=== PATIENT | female | born 1965 | race Caucasian/White ===

== ENCOUNTER → 2018-10-08 | Outpatient (CLI) | payer OTHER | LOC: CIMAGING 13:39 | PROVIDERS: ATTEND Family Medicine | DX: R07.81 Pleurodynia (principal); W19.XXXA Unspecified fall, initial encounter | CPT/HCPCS: 71046-PO; 71100-PO ==

== ENCOUNTER → 2018-11-23 | Outpatient (CLI) | payer OTHER | LOC: EMCIMAGING 11:59 | PROVIDERS: ATTEND Orthopaedic Surgery | DX: M75.92 Shoulder lesion, unspecified, left shoulder (principal); S73.102A Unspecified sprain of left hip, initial encounter | CPT/HCPCS: 73221-PN; 73721-PN ==